=== PATIENT | male | born 2000 | race African-American/Black ===

== ENCOUNTER 2018-10-07 21:44 | Emergency (ER) | payer OTHER, SELFPAY ==
[2018-10-07] MEDS ORDERED: Adacel (T-DAP) 0.5 ML SYRINGE ONE (22:03)
[2018-10-07] MEDS ORDERED: Sulfameth/Trimethoprim DS 800-160mg TAB ONE (22:04)
== END 2018-10-07 22:23 | disposition home or self-care (01) ==
LOC: NAV ERS 21:44
DX: S61.011A Laceration without foreign body of right thumb without damage to nail, initial encounter (principal); F17.210 Nicotine dependence, cigarettes, uncomplicated; W26.0XXA Contact with knife, initial encounter
CPT/HCPCS: 90471; 90715

== ENCOUNTER 2019-05-05 18:56 | Emergency (ER) | payer SELFPAY ==
[2019-05-05] MEDS ORDERED: Bacitracin 1 PK ONE (19:45)
== END 2019-05-05 19:57 | disposition home or self-care (01) ==
LOC: NAV ERS 18:56
DX: L08.9 Local infection of the skin and subcutaneous tissue, unspecified (principal); F17.210 Nicotine dependence, cigarettes, uncomplicated
CPT/HCPCS: 99283

== ENCOUNTER 2020-09-05 18:58 | Emergency (ER) | payer SELFPAY ==
--- NOTE | 2020-09-05 19:34 | RAD ---
EXAM: 3 views of the right ankle HISTORY: Ankle pain after trauma COMPARISON: None FINDINGS: 3 views of the right ankle shows no evidence of acute fracture or dislocation. Mild lateral and anterior soft tissue swelling is seen. No degenerative changes are present. IMPRESSION: No evidence of acute osseous abnormality.
== END 2020-09-05 19:52 | disposition home or self-care (01) ==
LOC: NAV ERS 18:58
DX: S93.401A Sprain of unspecified ligament of right ankle, initial encounter (principal); F17.210 Nicotine dependence, cigarettes, uncomplicated; X50.1XXA Overexertion from prolonged static or awkward postures, initial encounter

== ENCOUNTER 2022-06-15 15:11 | Emergency (ER) | payer BC, SELFPAY ==
[2022-06-15] MEDS ORDERED: Ibuprofen 800 MG TAB ONE (15:59)
== END 2022-06-15 17:53 | disposition home or self-care (01) ==
LOC: NAV ERS 15:11
DX: R51.9 Headache, unspecified (principal); Z20.822 Contact with and (suspected) exposure to COVID-19; F17.210 Nicotine dependence, cigarettes, uncomplicated
CPT/HCPCS: 87804; 99283; U0003; U0005

== ENCOUNTER 2023-09-05 16:08 | Emergency (ER) | payer BC ==
[2023-09-05] MEDS ORDERED: cefTRIAXone (ROCEPHIN) 1 GM VIAL ONE (17:39)
[2023-09-06 00:40] LABS: Chlam.trachomatis by PCR,Urine DETECTED (NotDetected); GC N.gonorrhoeae PCR,UrineVOID Not Detected (NotDetected)
== END 2023-09-05 18:07 | disposition home or self-care (01) ==
LOC: NAV ERS 16:08
DX: A56.8 Sexually transmitted chlamydial infection of other sites (principal); F17.210 Nicotine dependence, cigarettes, uncomplicated
CPT/HCPCS: 87491; 87591; 96372; 99283; J0696

== ENCOUNTER 2024-03-13 15:44 | Emergency (ER) | payer BC ==
[2024-03-13] MEDS ORDERED: Azithromycin 250 MG TAB ONE (16:27)
[2024-03-13] MEDS ORDERED: Sterile Water 10 ML ONE (16:28)
[2024-03-13] MEDS ORDERED: cefTRIAXone (ROCEPHIN) 1 GM VIAL ONE (16:28)
[2024-03-13 16:49] LABS: Bilirubin Negative (Negative); Blood, Urine Negative (Negative); Clarity Clear (Clear); Glucose, Urine (Dipstick) Negative (Negative); Ketone, Urine Negative (Negative); Leukocyte Negative (Negative); Nitrite Negative (Negative); Protein, Urine (Dipstick) Negative (Neg-Trace)
[2024-03-13 17:00] LABS: CAUTI Indications for Culture Dysuria,urgency,freq; Specific Gravity, Urine 1.026 (1.002-1.036); Urine Culture Reflex No No
[2024-03-14 13:33] LABS: Chlam.trachomatis by PCR,Urine DETECTED (NotDetected); GC N.gonorrhoeae PCR,UrineVOID Not Detected (NotDetected)
== END 2024-03-13 16:50 | disposition home or self-care (01) ==
LOC: NAV ERS 15:44
DX: Z20.2 Contact with and (suspected) exposure to infections with a predominantly sexual mode of transmission (principal); F17.210 Nicotine dependence, cigarettes, uncomplicated
CPT/HCPCS: 81001; 87491; 87591; 96372; 99283; J0696

== ENCOUNTER 2024-05-16 08:01 | Emergency (ER) | payer BC, SELFPAY ==
[2024-05-16] MEDS ORDERED: Boostrix 0.5 ML (Tdap) VIAL (>/=7 yrs of age) ONE (08:10)
== END 2024-05-16 09:23 | disposition home or self-care (01) ==
LOC: NAV ERS 08:01
DX: S61.211A Laceration without foreign body of left index finger without damage to nail, initial encounter (principal); F17.210 Nicotine dependence, cigarettes, uncomplicated; W26.8XXA Contact with other sharp object(s), not elsewhere classified, initial encounter
CPT/HCPCS: 12002; 90471; 90715

== ENCOUNTER 2024-07-11 18:32 | Emergency (ER) | payer SELFPAY | END 2024-07-11 19:28 | disposition left against medical advice (07) | LOC: NAV ERS 18:32 | DX: Z53.21 Procedure and treatment not carried out due to patient leaving prior to being seen by health care provider (principal) ==

== ENCOUNTER 2024-08-08 20:31 | Emergency (ER) | payer SELFPAY ==
[2024-08-08] MEDS ORDERED: Azithromycin 250 MG TAB ONE (20:57)
[2024-08-08] MEDS ORDERED: Azithromycin 500 MG VIAL ONE (20:57)
[2024-08-09 19:15] LABS: Chlam.trachomatis by PCR,Urine Not Detected (NotDetected); GC N.gonorrhoeae PCR,UrineVOID Not Detected (NotDetected)
== END 2024-08-08 21:24 | disposition home or self-care (01) ==
LOC: NAV ERS 20:31
DX: A59.9 Trichomoniasis, unspecified (principal); N34.2 Other urethritis
CPT/HCPCS: 87491; 87591; 96372; 99283; J0456

== ENCOUNTER 2025-10-15 16:16 | Emergency (ER) | payer OTHER ==
[2025-10-15] MEDS ORDERED: Ketorolac Tromethamine 30 MG (1 mL) VIAL ONE (16:42)
[2025-10-15 17:04] LABS: Hematocrit 45.9 % (42.0-52.0); Hemoglobin 16.0 g/dL (14.0-18.0); Mean Corpuscular Hemoglobin 29.0 pg (27.0-31.0); Mean Corpuscular Volume 83.3 fl (78.0-98.0); Platelet Count 250 10x3/uL (130-400); Red Blood Cell (RBC) Count 5.52 mill/uL (4.70-6.10); White Blood Cell (WBC) Count 4.3 10x3/uL (4.8-10.8)
[2025-10-15 17:15] LABS: ALT (SGPT) 22 U/L (Less than 45); AST (SGOT) 27 U/L (11-34); Albumin 4.3 g/dL (3.1-4.5); Alkaline Phosphatase 80 U/L (40-110); Anion Gap 16 mmol/L (10-20); BUN (Urea Nitrogen) 19 mg/dL (8.9-20.6); Bilirubin, Total 0.4 mg/dL (0.3-1.2); Calc. Creatinine Clearance 0 mL/min (70-130); Calcium 9.6 mg/dL (7.8-10.44); Carbon Dioxide 23 mmol/L (22-29); Chloride 104 mmol/L (98-107); Globulin 3.2 g/dL (2.4-3.5); Glucose 115 mg/dL (70-105); Platelet Adequacy Comment Appears Adequate; Potassium 3.8 mmol/L (3.5-5.1); Sodium 139 mmol/L (136-145)
[2025-10-15 17:17] LABS: Troponin I Less than 0.010 ng/mL (< 0.028)
== END 2025-10-15 17:32 | disposition home or self-care (01) ==
LOC: NAV ERS 16:16
DX: R07.9 Chest pain, unspecified (principal); F17.210 Nicotine dependence, cigarettes, uncomplicated
CPT/HCPCS: 71046; 80053; 83880; 84484; 85025; 93005; 94760; 96374; J1885